=== PATIENT | female | born 1995 | race Caucasian/White ===

== ENCOUNTER 2016-11-06 10:26 | Emergency (ER) | payer SELFPAY ==
[2016-11-06 10:32] VITALS: BP 134/89; BMI 32.5
[2016-11-06] MEDS ORDERED: XYLOCAINE 1 % (PLAIN) ONE ×2 (10:59→11:35)
[2016-11-06] MEDS ORDERED: ROCEPHIN VIAL 1 GM IM ONE (11:31)
--- NOTE | 2016-11-06 11:32 | DR.GENAD ---
HPI - PCP Primary Care Physician: NFAna M - Complaint/Symptoms Chief Complaint:: PT C/O ABSCESS TO LT INNER THIGH. PT STATES IT HAS BEEN THERE FOR 4 DAYS AND IS GETTING WORSE. PT STATES SHE IS NOT EVEN ABLE TO SIT DOWN. - Source History Provided: Patient - Mode of Arrival Mode of Arrival: Ambulatory - Timing Onset of Chief Complaint: 11/02/16 PMH - PMH Past Medical History: Yes Past Medical History: Seizures Past Surgical History: No Surgical History: Tonsillectomy - Family History History of Family Medical Conditions: No Family Medical History: Hypertension - Social History Does patient currently use any type of tobacco product: Yes Have you used tobacco products in the last 12 months: Yes Type of Tobacco Use: Cigarettes Does any household member use tobacco: Yes Alcohol Use: None Do you use any recreational Drugs:: No Lives With: Family Lives Where: Home - infectious screening In the last 2 months have you had wt loss of >10#?: NO Have you had fever, night sweats or hemotysis?: No Have you traveled outside the country in the last 6 months?: No Isolation: Standard ROS - Review of Systems Eyes: No Symptoms Reported ENTM: No Symptoms Reported Respiratoy: No Symptoms Reported Cardiovascular: No Symptoms Reported Gastrointestinal/Abdominal: No Symptoms Reported Genitourinary: No Symptoms Reported Neurological: No Symptoms Reported Musculoskeletal: No Symptoms Reported, Left (upper left thigh tenderness) Integumentary: No Symptoms Reported Hematologic/Lymphatic: No Symptoms Reported Endocrine: No Symptoms Reported Psychiatric: No Symptoms Reported All Other Systems: Reviewed and Negative PE - Vital Signs Vitals: Temperature 98.3 F Pulse Rate 98 Respiratory Rate 20 Blood Pressure [Left Arm] 131/81 Blood Pressure [Right Arm] 114/65 Blood Pressure 134/89 O2 Sat by Pulse Oximetry 97 - General General Appearance: Alert, In No Apparent Distress - Head Head Exam: Normal Inspection, Atraumatic - Eyes Eye exam: Normal Appearance, PERRL - ENT ENT Exam: Normal Exam External Ear Exam: Normal External Inspection TM/Canal Exam: Bilateral Normal Nose Exam: Normal Nose Exam Mouth Exam: Normal Inspection Throat Exam: Normal Inspection - Neck Neck Exam: Normal Inspection - Chest Chest Inspection: Normal Inspection - Respiratory Respiratory Exam: Normal Lung Sounds Bilat Respiratory Exam: Bilateral Clear to Auscultation - Cardiovascular Cardiovascular Exam: Regular Rate, Normal Rhythm - Abdominal Exam Abdominal Exam: Normal Inspection, Normal Bowel Sounds Abdominal Tenderness: negative: RUQ, RLQ, LUQ, LLQ, Epigastrium, Suprapubic, Diffuse, Mild, Moderate, Severe, Other - Extremities Extremities Exam: Normal Inspection, Full ROM - Back Back Exam: Normal Inspection - Neurologic Neurological Exam: Alert, Oriented X3, CN II-XII Intact - Psychiatric Psychiatric Exam: Normal Affect - Skin Skin Exam: Warm, Dry, Intact, Erythema (left upper medial thigh non fluctuant, erythematous) - Diagnosis Discharge Problem: Cellulitis Qualifiers: Site of cellulitis: extremity Site of cellulitis of extremity: lower extremity Laterality: left Qualified Code(s): L03.116 - Cellulitis of left lower limb - Discharge Plan Condition: Stable - Follow ups/Referrals Follow ups/Referrals: SHILOH BOONE [Primary Care Provider] - 3 days - Instructions
[2016-11-06] MEDS ORDERED: ROCEPHIN VIAL 1 GM ONE (11:35)
== END 2016-11-06 12:05 | disposition home or self-care (01) ==
LOC: ER 10:26
DX: L03.116 Cellulitis of left lower limb (principal)
CPT/HCPCS: 96372; 99282; J0696; J2001